=== PATIENT | male | born 1965 | race Caucasian/White ===

== ENCOUNTER 2025-07-09 10:24 | Outpatient (AMB) | payer MEDICARE, MEDICAID, SELFPAY ==
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
--- OUTSIDE RECORDS SUMMARY | 2025-07-09 11:55 | XMS_ITS | Encounter Summary ---
Author Organization [facility] Address [address] [place] [address] Care Team Providers Care Physician Specialist Name Role Phone Enrique Campa Primary Care Provider [phone] Reason for Visit * Reason Onset Date Comments GSSSI 07/02/2025 Encounter Details Date Type Department Care Team (Late st Contact Info) Description 07/02/2025 Telephone Adult Medicine [address] [phone] Enrique Campa PA [address] [place] [phone] Social History Tobacco Use Types Packs/Day Years Used Date Smoking Tobacco: Former Smokeless Tobacco: Never Alcohol Use Standard Drinks/Week Comments No 0 (1 standard drink = 0.6 oz pur e alcohol) Housing Instability Answer Date Recorde d Are you worried that in the next 2 months you may not have stable housing? No 10/02/2024 Food Access & Nutrition Answer Date Rec orded Do you have access to a vari ety of food including fruits and vegetables? No 10/02/2024 Health Literacy Answer Date Recorded How often do you need to hav e someone help you when you read instructions, pamphlets, or other written material from your doctor or pharmacy? Never 10/02/2024 Caregiver: How often do you need to have someone help you when you read instructions, pamphlets, or other written material from your doctor or pharmacy? Not on file 10/02/2024 Financial Risk Answer Date Recorded How hard is it for you to pa y for the very basics like food, housing, medical care, and air conditioning / heating? Not very hard 10/02/2024 Transportation Answer Date Recorded Has the lack of transportati on kept you from meetings, work, or from getting things needed for daily living? No Has the lack of transportati on kept you from medical appointments or from getting medications? No 10/02/2024 Food Risk Answer Date Recorded Within the past 12 months we worried whether our food would run out before we got money to buy more. Never true 10/02/2024 Within the past 12 months th e food we bought just didn't last and we didn't have money to get more. Never true 10/02/2024 Dependent Care Answer Date Recorded Do you need help finding or paying for care for your loved ones. For example, child development instructor or elderly care for an older adult? No 10/02/2024 Education Answer Date Recorded Do you think completing more education or training, like finishing a GED, going to college, or learning a trade, would be helpful for you? N/A 10/02/2024 Employment and Income Answer Date Recor ded During the last four weeks, have you been actively looking for work? No 10/02/2024 Living Situation Answer Date Recorded What is your living situation? Unrecognized valu e 10/02/2024 Sex and Gender Information Value Date Recorded Sex Assigned at Not on file Legal Sex Male 11:20 PM EST Gender Identity Not on file Sexual Orientation Not on file documented as of this encounter Progress Notes * Sabina An RN - 07/08/2025 11:02 AM EST Spoke with Angella at [facility], advised per provider. No further questions at this tiime * Oksana Longo - 07/08/2025 10:44 AM EST Angella SINGERI returning call - request to L/M if no answer * Sabina An RN - 07/07/2025 2:52 PM EST Left vm for Angella to return my call. * Yola Valdivia RN - 07/04/2025 4:00 PM EST Call on Monday when agency is open * PAVAN Deutsch - 07/02/2025 7:03 PM EST Not sure about health care proxy I would say his capacity to make medical decisions is probably somewhat limited He does have frequent falls especially lately I think he could use all the support he can get Main concern right now is the falling. Unfortunately he's unwilling to use a walker. I had him holdthe blood thinner because of this * Caroline Huggins - 07/02/2025 3:20 PM EST Does he have capacity? Does he have a health care proxy? If so, who? Is it evoked? Does he have frequent falls? Does he have enough support & services at home? Do you have any concerns about him in general? documented in this encounter Plan of Treatment Upcoming Encounters Date Type Department Care Team (Late st Contact Info) Description 08/19/2025 10:45 AM EST Office Visit Adult Medicine [address] [phone] Enrique Campa PA [facility] [place] [phone] documented as of this encounter Visit Diagnoses Not on filedocumented in this encounter Additional Health Concerns Assessment Noted Time PHQ-9 Depression Total Score: 0 02/13/20 25 12:40 PM EDT documented as of this encounter Care Teams Physician Specialist Relationship Specialty Start Date End Date Enrique Campa PA [address] [place] [address] PCP - General Internal Medicine 12/23/20 documented as of this encounter
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
--- OUTSIDE RECORDS SUMMARY | 2025-07-09 11:55 | XMS_ITS | Encounter Summary ---
Author Organization [facility] [address] Address [address] [place] [address] Care Team Providers Care Dipping Machine Operator Name Role Phone Enrique Campa Primary Care Provider [phone] Reason for Visit * Reason Onset Date Comments triage fall 07/01/2025 See message from [facility] Encounter Details Date Type Department Care Team ([facility] st Contact Info) Description 07/01/2025 Telephone Adult Medicine [address] [phone] Enrique Campa PA [address] [place] [phone] Social History Tobacco Use Types Packs/Day Years [...] care for your loved ones. For example, children's entertainer or elderly care for an older adult? [...] Progress Notes * Sabina An RN - 07/01/2025 2:11 PM EST Fell again Did a file an Elder at Risk today and [facility] has already reached out to her and will follow up with the pt. Not using walker or cane, refusing PT She did put in another referral for PT Fell backwards into laundry basket. Did not hit head Also had fallen last Monday night refused to go to the ER Not always wearing appropriate footwear and has hard wood floors. Slides around the floors. They are ordering socks with grippers on them. Has been off balance and when she checked his shoes the left sole on shoe is worn down so is probably adding to the balance issue Still off Xarelto but is doing the aspirin per orders * Alvaro Mancia LPN - 07/01/2025 1:13 PM EST See message from [facility] Please triage * Amrita Herzog - 07/01/2025 12:59 PM EST [facility] CALL Which [facility] office is calling? SHAMIR KRISHNAN Full name of caller: CRISTOBAL The caller is A nurse Is the caller at the patients home?: no Reason for call: REPORTS THAT PATIENT FELL LAST NIGHT, NO INJURY Does caller need an urgent call back? no Was CONTACT Telephone # obtained above?: yes Fax #: documented in this encounter Plan of Treatment Upcoming Encounters Date Type Department Care Team (Late st Contact Info) Description 08/19/2025 10:45 AM EST Office Visit Adult Medicine [address] [phone] Enrique Campa PA [address] [place] [phone] documented as of this encounter Visit Diagnoses Not on filedocumented in this encounter Additional Health Concerns Assessment Noted Time PHQ-9 Depression Total Score: 0 02/13/20 25 12:40 PM EDT documented as of this encounter Care Teams Dipping Machine Operator Relationship Specialty Start Date End Date Enrique Campa PA [address] [place], [place] PCP - General Internal Medicine 12/23/20 documented as of this encounter
--- OUTSIDE RECORDS SUMMARY | 2025-07-11 19:00 | XMS_ITS | Clinical Summary ---
Author Organization Unknown Care Team Providers Care Manager Semiconductor Name Role Phone NORBERT BROWNE, MAGDALENE Unavailable Unavailaixa FIELDS RN, CRISTOBAL Unavailable Unavailable Payers Payer Name Policy Type Policy Number Effective Date Expira tion Date ON DEMAND MEDICARE - [place]ILL[place] - AB[place] [id number] [place] [id number] Problems Condition Name Condition Details Condition Category Status Onset Date Resolution Date Last Treatment Date Treating Clinician Comments ESSENTIAL (PRIMARY) HYPERTENSION Active 02-25 00:00: 00 EPILEPSY, UNSP, NOT INTRACTABLE, WITHOUT STATUS EPILEPTICUS Active 03-12 00:00: 00 TYPE 2 DIABETES MELLITUS WITHOUT COMPLICATION S Active 03-12 00:00: 00 UNSPECIFIED ATRIAL FIBRILLATION Active 03-12 00:00: 00 HYPERLIPIDEM IA, UNSPECIFIED Active 03-12 00:00: 00 CHRONIC FATIGUE, UNSPECIFIED Active 03-12 00:00: 00 MUSCLE WASTING AND ATROPHY, NEC, MULTIPLE SITES Active 03-26 00:00: 00 UNSPECIFIED PROTEIN-MIMI ASHLEY MALNUTRITION Active 03-26 00:00: 00 HISTORY OF FALLING Active 03-12 00:00: 00 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 Ordering Clinician Indication Dosage Frequency Signature (SIG) Comments Components amlodipine 5 mg tablet 03-17 00:00: 00 Yes [id number] 1 tablet DAILY 1 tablet DAILY (route: oral) Med Classific ation: Cardiovas cular Therapy Agents aspirin 81 mg tablet 03-17 00:00: 00 Yes [id number] 1 tablet DAILY 1 tablet DAILY (route: oral) Med Classific ation: Hematolog ical Agents atorvastati n 40 mg tablet 03-17 00:00: 00 Yes [id number] 1 tablet BEDTIME 1 tablet BEDTIME (route: oral) Med Classific ation: Cardiovas cular Therapy Agents betamethaso ne dipropionat e 0.05 % topical cream 03-17 00:00: 00 Yes [id number] Per instruc tions 2 TIMES DAILY Per instructio ns 2 TIMES DAILY (route: topical) Med Classific ation: Dermatolo gical carbamazepi ne ER 400 mg tablet,exte nded release,12 hr 03-17 00:00: 00 Yes [id number] 1 tablet 2 TIMES DAILY 1 tablet 2 TIMES DAILY (route: oral) Med Classific ation: Central Nervous System Agents levetiracet am 1,000 mg tablet 03-17 00:00: 00 Yes [id number] 1 tablet 2 TIMES DAILY 1 tablet 2 TIMES DAILY (route: oral) Med Classific ation: Central Nervous System Agents metoprolol succinate ER 25 mg tablet,exte nded release 24 hr 03-17 00:00: 00 Yes [id number] 1 tablet DAILY 1 tablet DAILY (route: oral) Med Classific ation: Cardiovas cular Therapy Agents sertraline 50 mg tablet 03-17 00:00: 00 Yes [id number] 1 tablet DAILY 1 tablet DAILY (route: oral) Med Classific ation: Central Nervous System Agents Xarelto 20 mg tablet 03-17 00:00: 00 Yes [id number] 1 tablet BEDTIME 1 tablet BEDTIME (route: oral) Med Classific ation: Hematolog ical Agents Vital Signs Vital Name Observation Time Observation Value Commen ts Temperature 2025-05-23 08:57:00.000 97.3 [degF] Pulse 2025-07-03 11:45:00.000 80 /min Pulse 2025-06-26 10:36:00.000 73 /min Pulse 2025-06-20 15:18:00.000 63 /min Pulse 2025-05-30 10:16:00.000 66 /min Pulse 2025-05-23 08:57:00.000 76 /min O2 Saturation (%) 2025-07-03 11:45:00.000 94 % Respirations 2025-07-03 11:45:00.000 12 /min Respirations 2025-06-27 14:36:00.000 18 /min Respirations 2025-06-26 10:36:00.000 18 /min Respirations 2025-06-20 15:18:00.000 16 /min Respirations 2025-06-17 09:37:00.000 16 /min Respirations 2025-05-30 10:13:00.000 17 /min Respirations 2025-05-23 08:57:00.000 16 /min Systolic Blood Pressure 2025-06-26 10:36:00.000 143 mm [Hg] Systolic Blood Pressure 2025-06-20 15:18:00.000 150 mm [Hg] Systolic Blood Pressure 2025-05-30 10:16:00.000 136 mm [Hg] Systolic Blood Pressure 2025-05-23 08:58:00.000 128 mm [Hg] Diastolic Blood Pressure 2025-06-26 10:36:00.000 75 mm [Hg] Diastolic Blood Pressure 2025-06-20 15:18:00.000 86 mm [Hg] Diastolic Blood Pressure 2025-05-30 10:16:00.000 82 mm [Hg] Diastolic Blood Pressure 2025-05-23 08:58:00.000 61 mm [Hg] Plan of Treatment Planned Activity Planned Date Details Comments Future Scheduled Test SKILLED NU RSE TO EVALUATE PATIENT, IDENTIFY PRIMARY AND CO-MORBID CONDITIONS CODED PER CODING GUIDELINES, AND DEVELOP PATIENT SPECIFIC PLAN OF CARE THAT INCLUDES PATIENT GOAL FOR HOME HEALTH. [code = SKILLED NURSE TO EVALUATE PATIENT, IDENTIFY PRIMARY AND CO-MORBID CONDITIONS CODED PER CODING GUIDELINES, AND DEVELOP PATIENT SPECIFIC PLAN OF CARE THAT INCLUDES PATIENT GOAL FOR HOME HEALTH.] Future Scheduled Test SKILLED NU RSE TO PERFORM HOME SAFETY AND FALL ASSESSMENT AND PROVIDE INSTRUCTION TO IMPLEMENT HOME SAFETY AND FALL PREVENTION STRATEGIES. [code = SKILLED NURSE TO PERFORM HOME SAFETY AND FALL ASSESSMENT AND PROVIDE INSTRUCTION TO IMPLEMENT HOME SAFETY AND FALL PREVENTION STRATEGIES.] Future Scheduled Test SKILLED NU RSE FOR OBSERVATION AND ASSESSMENT OF PATIENT S PAIN LEVEL AND EFFECTIVENESS OF PAIN MANAGEMENT REGIMEN. SKILLED NURSE TO INSTRUCT PATIENT/CAREGIVER REGARDING PHARMACOLOGIC AND NON-PHARMACOLOGIC PAIN CONTROL MEASURES. SKILLED NURSE TO REPORT TO PHYSICIAN IF PAIN IS UNCONTROLLED WITH CURRENT PAIN MANAGEMENT REGIMEN. [code = SKILLED NURSE FOR OBSERVATION AND ASSESSMENT OF PATIENT S PAIN LEVEL AND EFFECTIVENESS OF PAIN MANAGEMENT REGIMEN. SKILLED NURSE TO INSTRUCT PATIENT/CAREGIVER REGARDING PHARMACOLOGIC AND NON-PHARMACOLOGIC PAIN CONTROL MEASURES. SKILLED NURSE TO REPORT TO PHYSICIAN IF PAIN IS UNCONTROLLED WITH CURRENT PAIN MANAGEMENT REGIMEN.] Future Scheduled Test PATIENT LINO S A RISK OF HOSPITALIZATION AND ED USE. SKILLED NURSE TO ESTABLISH SUPPORT MEASURES TO MINIMIZE RISK OF HOSPITALIZATION AND ED USE, AND INSTRUCT PATIENT/CAREGIVER ON METHODS TO REDUCE AVOIDABLE HOSPITALIZATION AND ED USE. [code = PATIENT HAS A RISK OF HOSPITALIZATION AND ED USE. SKILLED NURSE TO ESTABLISH SUPPORT MEASURES TO MINIMIZE RISK OF HOSPITALIZATION AND ED USE, AND INSTRUCT PATIENT/CAREGIVER ON METHODS TO REDUCE AVOIDABLE HOSPITALIZATION AND ED USE.] Future Scheduled Test SKILLED NU RSE TO O/A OF PATIENTS MENTAL/BEHAVIORAL STATUS, ASSESS VITAL SIGNS WEEKLY, ALLOW 2 PRNS FOR MEDICATION MANAGEMENT. [code = SKILLED NURSE TO O/A OF PATIENTS MENTAL/BEHAVIORAL STATUS, ASSESS VITAL SIGNS WEEKLY, ALLOW 2 PRNS FOR MEDICATION MANAGEMENT.] Future Scheduled Test SKILLED NU RSE WILL MAINTAIN SITUATIONAL AWARENESS FOR SAFETY AND WILL NOTIFY CLINICAL TECHNICAL MGR AND PHYSICIAN/PROVIDER WITH ANY CHANGE IN CONDITION. [code = SKILLED NURSE WILL MAINTAIN SITUATIONAL AWARENESS FOR SAFETY AND WILL NOTIFY CLINICAL TECHNICAL MGR AND PHYSICIAN/PROVIDER WITH ANY CHANGE IN CONDITION.] Future Scheduled Test SKILLED NU RSE FOR O/A OF GENERAL HEALTH STATUS OF PAIN, CARDIAC, RESPIRATORY, GASTROINTESTINAL, GENITOURINARY, SKIN, NEUROLOGIC, ENDOCRINE SYSTEMS TO IDENTIFY CHANGES ASSOCIATED WITH EXACERBATION FOR EARLY INTERVENTION OF COMPLICATIONS 2 X WEELY [code = SKILLED NURSE FOR O/A OF GENERAL HEALTH STATUS OF PAIN, CARDIAC, RESPIRATORY, GASTROINTESTINAL, GENITOURINARY, SKIN, NEUROLOGIC, ENDOCRINE SYSTEMS TO IDENTIFY CHANGES ASSOCIATED WITH EXACERBATION FOR EARLY INTERVENTION OF COMPLICATIONS 2 X WEELY] Future Scheduled Test SKILLED NU RSE TO ADMINISTER MEDICATIONS 2 X WEEKLY AND PRE-POUR MEDICATIONS 2XWEEKLY PER MEDICATION LIST. [code = SKILLED NURSE TO ADMINISTER MEDICATIONS 2 X WEEKLY AND PRE-POUR MEDICATIONS 2XWEEKLY PER MEDICATION LIST.] Future Scheduled Test PATIENT MA Y HAVE ONE SET OF EMERGENCY MEDICATION NOT TO BE PRE-POURED ANY SOONER THAN 24 HOURS BEFORE SEVERE INCLEMENT WEATHER OR EMERGENT EVENT AND FOLLOWING SKILLED NURSE EVALUATION OF PATIENT SAFETY. [code = PATIENT MAY HAVE ONE SET OF EMERGENCY MEDICATION NOT TO BE PRE-POURED ANY SOONER THAN 24 HOURS BEFORE SEVERE INCLEMENT WEATHER OR EMERGENT EVENT AND FOLLOWING SKILLED NURSE EVALUATION OF PATIENT SAFETY.] Future Scheduled Test SKILLED NU RSE FOR O/A AND SKILLED TEACHING RELATED TO MANAGEMENT OF DEPRESSIVE SYMPTOMS AND/OR DEPRESSION. SN TO REPORT SIGNIFICANT CHANGE IN DEPRESSIVE SYMPTOMS TO CLINICAL PROVIDER FOR EARLY INTERVENTION. [code = SKILLED NURSE FOR O/A AND SKILLED TEACHING RELATED TO MANAGEMENT OF DEPRESSIVE SYMPTOMS AND/OR DEPRESSION. SN TO REPORT SIGNIFICANT CHANGE IN DEPRESSIVE SYMPTOMS TO CLINICAL PROVIDER FOR EARLY INTERVENTION.] Future Scheduled Test SKILLED NU RSE TO ASSESS PATIENT S PSYCHOSOCIAL STATUS TO IDENTIFY POTENTIAL ISSUES THAT MAY COMPLICATE THE PROVISION OF THE PLAN OF CARE INCLUDING THE PATIENT S ABILITY TO ACCESS COMMUNITY RESOURCES AND PSYCHOSOCIAL SUPPORT SERVICES. [code = SKILLED NURSE TO ASSESS PATIENT S PSYCHOSOCIAL STATUS TO IDENTIFY POTENTIAL ISSUES THAT MAY COMPLICATE THE PROVISION OF THE PLAN OF CARE INCLUDING THE PATIENT S ABILITY TO ACCESS COMMUNITY RESOURCES AND PSYCHOSOCIAL SUPPORT SERVICES.] Future Scheduled Test MEDICATION S WILL BE HELD AND STORED IN MEDICATION SAFE. [code = MEDICATIONS WILL BE HELD AND STORED IN MEDICATION SAFE.] Future Scheduled Test SKILLED NU RSE TO PROVIDE TEACHING ON SIGNS AND SYMPTOMS AND MANAGEMENT OF HYPERTENSION. [code = SKILLED NURSE TO PROVIDE TEACHING ON SIGNS AND SYMPTOMS AND MANAGEMENT OF HYPERTENSION.] Future Scheduled Test INSTRUCTED PATIENT/CAREGIVER ON SIGNS AND SYMPTOMS, RISK FACTORS, COMPLICATIONS, AND MANAGEMENT OF ATRIAL FIBRILLATION. [code = INSTRUCTED PATIENT/CAREGIVER ON SIGNS AND SYMPTOMS, RISK FACTORS, COMPLICATIONS, AND MANAGEMENT OF ATRIAL FIBRILLATION.] Goal 2025-05-09 Patient Goal - TAKE MY MEDS Goal Patient Goal - TAKE MY MEDS Goal Provider Goal - A PLAN OF CARE WILL BE ESTABLISHED THAT MEETS PATIENT'S LONG-TERM NEEDS AND INCLUDES PATIENT GOAL FOR HOME HEALTH. Goal Provider Goal - PATIENT/CAREGIVER WILL VERBALIZE/DEMONSTRATE EFFECTIVE HOME SAFETY AND FALL PREVENTION STRATEGIES THROUGHOUT CERTIFICATION PERIOD. Goal Provider Goal - PATIENT/CAREGIVER WILL DEMONSTRATE UNDERSTANDING OF PHARMACOLOGIC AND NONPHARMACOLOGIC PAIN CONTROL MEASURES AND PATIENT WILL HAVE IMPROVEMENT IN PAIN INTERFERING WITH ACTIVITY EVIDENCED BY PAIN AT A LEVEL THAT IS ACCEPTABLE TO THE PATIENT AND PAIN LEVEL WITHIN ESTABLISHED PARAMETERS BY END OF CERTIFICATION PERIOD. Goal Provider Goal - PATIENT WILL HAVE SUPPORT MEASURES ESTABLISHED TO PREVENT HOSPITALIZATION AND ED USE AND PATIENT/CAREGIVER WILL VERBALIZE/DEMONSTRATE METHODS TO REDUCE AVOIDABLE HOSPITALIZATION AND ED USE BY END OF EPISODE. Goal Provider Goal - ALTERED MENTAL/BEHAVIORAL STATUS WILL BE IDENTIFIED PROMPTLY AND INTERVENTION INITIATED QUICKLY TO MINIMIZE ASSOCIATED RISKS THROUGHOUT CERTIFICATION PERIOD. Goal Provider Goal - PATIENT WILL REMAIN SAFE IN THE COMMUNITY AND WILL BE FREE OF DANGER TO SELF AND OTHERS THROUGHOUT THE CERTIFICATION PERIOD. Goal Provider Goal - CHANGE IN GENERAL HEALTH STATUS WILL BE IDENTIFIED AND REPORTED TO PHYSICIAN FOR PROMPT INTERVENTION TO MINIMIZE ASSOCIATED RISKS THROUGHOUT CERTIFICATION PERIOD. Goal Provider Goal - PATIENT WILL COMPLY WITH MEDICATION WHEN SKILLED NURSE ADMINISTERS AND PRE-POURS MEDICATION THROUGHOUT CERTIFICATION PERIOD. Goal Provider Goal - MEDICATION WILL BE AVAILABLE DURING INCLEMENT WEATHER OR EMERGENT EVENT THROUGHOUT CERTIFICATION PERIOD. Goal Provider Goal - PATIENT WILL REMAIN SAFE WITHOUT DECOMPENSATION IN DEPRESSIVE CONDITION, WHILE MAINTAINING OPTIMAL LEVEL OF MENTAL HEALTH AND WELL BEING THROUGHOUT CERTIFICATION PERIOD. Goal Provider Goal - PSYCHOSOCIAL NEEDS WILL BE IDENTIFIED AND PLAN IMPLEMENTED TO MINIMIZE RISK THROUGHOUT CERTIFICATION PERIOD. Goal Provider Goal - MEDICATIONS WILL BE STORED IN MEDICATION SAFE FOR SAFETY. Goal Provider Goal - PATIENT/CAREGIVER WILL VERBALIZE SIGNS AND SYMPTOMS OF HYPERTENSION AND WILL BE ABLE TO DEMONSTRATE ABILITY TO MANAGE EXACERBATION BY END OF THE EPISODE. Goal Provider Goal - PATIENT/CAREGIVER WILL VERBALIZE UNDERSTANDING OF SIGNS AND SYMPTOMS, COMPLICATIONS, AND MANAGEMENT OF ATRIAL FIBRILLATION THROUGHOUT THE CERTIFICATION PERIOD. Progress Notes Progress Notes <paragraph>[Visit Date: 2024 by CRISTOBAL FIELDS RN]:</paragraph><paragraph>DEC SNV</paragraph><paragraph></paragraph><paragraph>PATIENT APPEARS DISHEVELED DURING VISIT. PASSIVE EYE CONTACT, MINIMALLY ENGAGING, MEDICATION FROM LAST NURSING VISIT NOTED TO BE EMPTIED. PRE-FILLED MEDICATION FOR TOMORROW WELL TODAY DUE TO IMPENDING SNOWSTORM. REINFORCE THE IMPORTANCE OF MEDICATION COMPLIANCE WITH PATIENT. PATIENT DENIED ANY RECENT FALLS, NO ACUTE INJURIES ARE OBSERVED. CONTINUE TO REINFORCE THE IMPORTANCE OF FALL RISK SAFETY PREVENTION MEASURES SUCH FOR MOVING ANY TRIPPING HAZARDS FROM THE HOME LIKE AREA RUGS NOTED TO BE IN FRONT OF THE DOOR WELL EDUCATING PATIENT ON THE IMPORTANCE OF PROPER FOOTWEAR AT ALL TIMES. PATIENT WAS NOTED TO BE WEARING JUST SOCKS AROUND THE HOUSE AND APPEAR TO BE SLIPPING A LITTLE. THIS NETWORK ARCHITECT DISCUSSED WITH PATIENT WEARING SOCKS WITH GRIPPERS ON THE BOTTOM OF THEM OR WEARING A SHOE THAT HAS A BACK ON IT, DISCUSS NOT WEARING SLIPPERS THEY CAN BE FALL RISK.</paragraph> Encounters Start Date/Time End Date/Time Encounter Type Admission Type Attending [facility] Facility Care Department Encounter ID Discharge Date Discharge Status Discharge Condition Discharge Reason Percent Goals Met 2025-05-14 00:00:00 2025-07-12 00:00:00 Outpatient RECERTIFIC ATCRISTOBAL SEARS [facility] [id number] [phone]
== END 2025-07-09 10:42 | disposition home or self-care (01) ==
PROVIDERS: PCP Physician Assistant Medical; Referring Provider Physician Assistant Medical; Visit Provider Registered Nurse
DX: G40.909 Epilepsy, unspecified, not intractable, without status epilepticus (principal); G81.91 Hemiplegia, unspecified affecting right dominant side; G93.49 Other encephalopathy
CPT/HCPCS: 99214

== ENCOUNTER → 2025-07-09 10:24 | Outpatient (BNVA) | payer MEDICARE, MEDICAID, SELFPAY | PROVIDERS: PCP Physician Assistant Medical; Referring Provider Physician Assistant Medical; Visit Provider Registered Nurse | DX: G40.909 Epilepsy, unspecified, not intractable, without status epilepticus (principal); G81.91 Hemiplegia, unspecified affecting right dominant side; F10.10 Alcohol abuse, uncomplicated; Z87.820 Personal history of traumatic brain injury; G93.49 Other encephalopathy; Z79.82 Long term (current) use of aspirin | CPT/HCPCS: 99212 ==